=== PATIENT | female | born 1930 | race African-American/Black ===

== ENCOUNTER 2016-10-04 16:34 | Emergency (ER) | payer MEDICARE, MEDICAID ==
[~2016-10-04] VITALS: Ht 177.8 cm; Wt 80.0 kg
[2016-10-04] MEDS ORDERED: PANTOPRAZOLE SODIUM 40 MG/VIAL IV STA (17:22)
[2016-10-04 17:43] LABS: BASOPHILS % 0.5 % (0.0-2.0); EOSINOPHILS % 0.4 % (0.0-5.0); LYMPHOCYTES % 30.6 % (20.0-50.0); MEAN CORPUSCULAR HEMOGLOBIN 30.6 pg (28.0-32.0); MEAN CORPUSCULAR HGB CONC 33.2 g/dL (31.0-37.0); MEAN CORPUSCULAR VOLUME 92.2 fL (81.0-99.0); MONOCYTES % 7.5 % (2.0-8.0); PLATELET 219 x1000/uL (130-400); RED CELL DISTRIBUTION WIDTH 13.9 % (11.6-14.6); WHITE BLOOD COUNT 4.7 x1000/uL (4.5-11.0)
[2016-10-04 17:50] LABS: CHLORIDE 106 mEq/L (98-107); INDEX HEMOLYSI 1 (1-3); INDEX ICTERIC 1 (1-4); INDEX LIPEMIC 1 (1-3)
[2016-10-04 17:54] LABS: ALBUMIN 3.5 g/dL (3.4-5.0); ANION GAP 9; CALCIUM 9.2 mg/dL (8.5-10.1); CARBON DIOXIDE 29 mEq/L (21-32); LIPASE 102 IU/L (73-393); UREA NITROGEN BLOOD 12 mg/dL (7-21)
[2016-10-04 17:57] LABS: ALANINE AMINOTRANSFERASE 19 IU/L (13-61); eGFR > 60 mL/min (>60)
[2016-10-04 18:01] LABS: NT PRO B-TYPE NATRIURETIC PEP 96 pg/mL (5-125); TROPONIN I < 0.02 ng/mL (0.00-0.04)
[2016-10-04 19:53] LABS: CLARITY URINE CLEAR (CLEAR); COLOR URINE YELLOW (YELLOW); GLUCOSE URINE NEGATIVE (NEGATIVE); KETONES URINE NEGATIVE (NEGATIVE); LEUKOCYTE ESTERASE URINE NEGATIVE (NEGATIVE); NITRITE URINE NEGATIVE (NEGATIVE); OCCULT BLOOD URINE NEGATIVE (NEGATIVE); PROTEIN URINE NEGATIVE (NEGATIVE); SPECIFIC GRAVITY URINE 1.006 (1.005-1.030); UROBILINOGEN URINE 0.2 E.U./dL (0.2-1.0)
[2016-10-04 22:48] VITALS: BP 149/76
== END 2016-10-05 07:00 | disposition home or self-care (01) ==
LOC: ER 16:35
DX: R19.5 Other fecal abnormalities (principal); E61.1 Iron deficiency; I10 Essential (primary) hypertension
CPT/HCPCS: 36415; 71010; 74176; 80053; 81003; 82270; 83690; 83880; 84484; 85025; 85610; 93005; 96374; 99285; C9113; J7030

== ENCOUNTER → 2017-03-27 | Outpatient (CLI) | payer MEDICARE, MEDICAID | END | disposition home or self-care (01) | LOC: US 08:53 | PROVIDERS: ATTEND Internal Medicine Gastroenterology | DX: N27.1 Small kidney, bilateral (principal); N28.1 Cyst of kidney, acquired | CPT/HCPCS: 76700 ==

== ENCOUNTER 2018-01-28 12:23 | Emergency (ER) | payer MEDICARE, MEDICAID ==
[~2018-01-28] VITALS: Ht 177.8 cm; Wt 79.0 kg
[2018-01-28 15:04] LABS: BASOPHILS % 0.7 % (0.0-2.0); EOSINOPHILS % 0.3 % (0.0-5.0); HEMOGLOBIN. 11.8 g/dL (12.0-16.0); LYMPHOCYTES % 39.6 % (20.0-50.0); MEAN CORPUSCULAR HEMOGLOBIN 31.7 pg (28.0-32.0); MEAN PLATELET VOLUME 7.1 fl (7.4-10.4); MONOCYTES % 9.5 % (2.0-8.0); NEUTROPHILS % 49.9 % (40.0-76.0); PLATELET 244 x1000/uL (130-400); RED BLOOD CELL COUNT 3.72 mill/uL (4.2-5.4); RED CELL DISTRIBUTION WIDTH 13.5 % (11.6-14.6)
[2018-01-28 15:12] LABS: CHLORIDE 105 mEq/L (98-107)
[2018-01-28] MEDS ORDERED: GABAPENTIN 300MG CAPSULE PO ONE (15:30)
[2018-01-28 16:07] VITALS: BP 141/66
== END 2018-01-28 16:10 | disposition home or self-care (01) ==
LOC: ER 14:05
DX: R20.2 Paresthesia of skin (principal); G62.9 Polyneuropathy, unspecified; I10 Essential (primary) hypertension
CPT/HCPCS: 36415; 80048; 85025; 99284

== ENCOUNTER → 2018-03-21 | Outpatient (CLI) | payer MEDICARE, MEDICAID | END | disposition home or self-care (01) | LOC: RAD 15:43 | DX: M11.231 Other chondrocalcinosis, right wrist (principal); M19.031 Primary osteoarthritis, right wrist | CPT/HCPCS: 73110 ==